=== PATIENT | male | born 1995 | race Caucasian/White ===

== ENCOUNTER 2016-11-24 17:23 | Emergency (ER) | payer BC ==
[~2016-11-24] VITALS: Ht 175.3 cm; Wt 67.8 kg
[2016-11-24 17:31] VITALS: TEMP 36.7; Ht 175.3 cm; Wt 67.8 kg
[2016-11-24] MEDS ORDERED: IBUPROFEN 600 MG TAB PO STA (17:56)
[2016-11-24] MEDS ORDERED: HYDROCODONE/ACETAMOPHEN 5/325MG TAB PO STA (17:56)
--- NOTE | 2016-11-24 17:58 | EMERGENCY ROOM VISIT NOTE ---
History Report prepared by Jono: Cisco Taylor Under the Supervision of: Dr. Peter Lundberg M.D. First contact with patient: 17:47 Chief Complaint: TESTICULAR PAIN Stated Complaint: TESTICULAR AND BACK PAIN Nursing Triage Summary: PT C/O RIGHT TESTICULAR AND BILATERAL LOWER BACK PAIN 4/10 X3 DAYS. DENIES ANY PENILE DISCHARGE. DENIES ANY INJURY PRIOR TO PAIN STARTING. PT WAS SEEN AT URGENT CARE, GAVE URINE SAMPLE AND WAS TOLD THERE WAS BLOOD IN URINE BUT UNABLE TO DETERMINE CAUSE, SENT HERE FOR FURTHER EVAL. History of Present Illness The patient is a 20 year old male who presents to the Emergency Room with complaints of intermittent right testicular pain that started 3 days ago. The patient associates the testicular pain with lower back pain on both sides. He says he went to [facility] earlier today and gave a urine sample. The patient notes that it was found that he had a bit of blood in his urine but it was not visible. He was then sent here. The patient denies any nausea, abdominal pain, or penile discharge. He has no major medical history. The patient has not had any sexual contact lately. Source of History: patient Onset: 3 days ago Position: other (right testicle - pain) Timing: intermittent Associated Symptoms: + back pain (lower), + urinary symptoms (bit of blood in urine - not visible), No abdominal pain, No nausea Note: Associated symptoms: Denies penile discharge. Review of Systems See HPI for pertinent positives & negatives. A total of 10 systems reviewed and were otherwise negative. Past Medical & Surgical Medical Problems: (1) ADHD (attention deficit hyperactivity disorder), combined type (2) No pertinent past medical history (3) Substance use disorder Surgical Problems: (1) No pertinent past surgical history Family History No pertinent family history Social History Smoking Status: Current Every Day Smoker Alcohol Use: none Drug Use: none Marital Status: single Occupation Status: student Current/Historical Medications Scheduled Amphetamine-Dextroamphetamine 20MG (Adderall 20MG), 20 MG PO BID Doxycycline Monohydrate (Monodox), 100 MG PO BID Scheduled PRN Hydrocodone/Acetaminophen 5MG/325MG (Bracey 5MG/325MG), 2 TABLETS PO Q6 PRN for Pain Allergies Uncoded Allergies: UNKNOWN SLEEPING MED (Allergy, Unknown, UNKNOWN, 11/24/16) Physical Exam Vital Signs Date Time Temp Pulse Resp B/P Pulse Ox O2 Delivery O2 Flow Rate FiO2 11/24/16 19:30 76 16 119/82 98 11/24/16 17:31 36.7 102 18 126/74 96 Room Air Physical Exam GENERAL: Patient is a healthy-appearing well-nourished HEAD: Normocephalic atraumatic EYES: Ocular movements intact pupils equal and react to light OROPHARYNX mucous membranes are moist no exudates present no erythema or edema present NECK: Supple no nuchal rigidity CHEST: Good equal expansion LUNGS: Clear and equal to auscultation CARDIAC: Normal S1 and S2 ABDOMEN: Soft nontender no guarding BACK: No CVA tenderness EXTREMITIES: No pain upon palpation normal muscle strength in all groups no clubbing cyanosis or edema : Normal cremasteric reflex. No discharge, no testicular tenderness. NEURO: Patient is following commands is answering questions appropriately. Alert and oriented x3 Cranial Nerves 2-12 grossly intact Medical Decision & Procedures ER Provider Diagnostic Interpretation: US results as stated below per my review and radiologist interpretation: TESTICULAR ULTRASOUND HISTORY: Right-sided testicular pain. COMPARISON: None. FINDINGS: Right testis: 2.9 x 4.3 x 2.2 cm. There are no intratesticular masses. Normal color flow. No hydrocele. The epididymis is unremarkable. Left testis: 3.0 x 4.6 x 2.1 cm. There are no intratesticular masses. Normal color flow. No hydrocele. The epididymis is unremarkable. IMPRESSION: Normal testicular ultrasound. Electronically signed by: Tim Amaya M.D. 11/24/2016 6:54 PM Dictated Date/Time: 11/24/2016 6:53 PM RENAL ULTRASOUND HISTORY: Right-sided back pain/flank pain. COMPARISON: None. FINDINGS: Right kidney: 11 cm. No hydronephrosis. Normal corticomedullary differentiation and cortical thickness. There is a 7 mm cyst within the lower pole. Left kidney: 10.6 cm. No hydronephrosis. Normal corticomedullary differentiation and cortical thickness. Bladder: No bladder wall thickening. The bilateral ureteral jets were identified. IMPRESSION: 1. A 7 mm cyst within the lower pole of the right kidney. 2. Otherwise, normal renal ultrasound. Electronically signed by: Tim Amaya M.D. 11/24/2016 6:53 PM Dictated Date/Time: 11/24/2016 6:52 PM Laboratory Results Test 1/27/17 18:05 Urine Color YELLOW Urine Appearance CLEAR (CLEAR) Urine pH 6.5 (4.5-7.5) Urine Specific [place] 1.000 (1.000-1.030) Urine Protein NEG (NEG) Urine Glucose (UA) NEG (NEG) Urine Ketones NEG (NEG) Urine Occult Blood NEG (NEG) Urine Nitrite NEG (NEG) Urine Bilirubin NEG (NEG) Urine Urobilinogen NEG (NEG) Urine Leukocyte Esterase NEG (NEG) Labs reviewed by ED physician. Medications Administered Medications (Trade) Dose Ordered Sig/Mercedes Route Start Time Stop Time Status Last Admin Dose Admin Acetaminophen/ Hydrocodone Bitart (Bracey 5/325 Tab) 2 tab NOW STAT PO 11/24/16 17:56 11/24/16 17:57 DC 11/24/16 18:11 2 TAB Azithromycin (Zithromax Tab) 1,000 mg NOW STAT PO 11/24/16 19:08 11/24/16 19:10 DC 11/24/16 19:27 1,000 MG Doxycycline Hyclate (Vibramycin Cap) 100 mg NOW STAT PO 11/24/16 19:08 11/24/16 19:10 DC 11/24/16 19:27 100 MG Acetaminophen/ Hydrocodone Bitart (Bracey 5/325mg Home Pack) 1 homepack UD ONCE PO 11/24/16 19:15 11/24/16 19:16 DC 11/24/16 19:28 1 HOMEPACK ED Course 1748: Past medical records reviewed. The patient was evaluated in room C12A. A complete history and physical examination was performed. 1756: Ordered Bracey 5/325 Tab 2 tab PO, Motrin Tab 600 mg PO. 1907: Ordered Vibramycin Cap 100 mg PO, Zithromax Tab 1000 mg PO, Rocephin IM 250 mg. 1904: I reevaluated the patient and he is resting comfortably. The patient verbally expressed understanding and agreement of the treatment plan. The patient will be discharged. 1914: Ordered Bracey 5/325 mg Home Pack 1 homepack PO. Medical Decision This is a 20-year-old male who presents emergency department complaining of right testicular pain as well as left-sided back pain. Serial abdominal examinations were performed on the patient in the emergency department and at no time did the patient exhibit abdominal tenderness or surgical abdomen. Based on the patient's history as well as his findings he was sent for an ultrasound of the testicles to ensure that this was not a torsion. The patient had been sent in by medics breast to express concerns over possible blood in the urine. There is no evidence of blood in the urine here in the emergency department. Based on this finding however the patient was also sent for renal ultrasound. The ultrasound of both the renals as well as the bladder and the testicles are normal. At this point I offered to do a CAT scan for the patient however using shared medical decision making we will I believe this to be low yield and the patient will defer to be seeing urology. I did recommended tight fitting brace recommended antibiotics encases as infection. For this reason the patient was given Rocephin azithromycin and started on doxycycline. He will follow up with urology. Impression Primary Impression: Testicular pain, right Scribe Attestation The scribe's documentation has been prepared under my direction and personally reviewed by me in its entirety. I confirm that the note above accurately reflects all work, treatment, procedures, and medical decision making performed by me. Departure Information Dispostion Home / Self-Care Prescriptions Hydrocodone/Acetaminophen 5MG/325MG (Bracey 5MG/325MG) Tab 2 TABLETS PO Q6 Y for Pain, #14 TAB Prov: Peter Lundberg MD 11/24/16 Doxycycline Monohydrate (Monodox) 100 Mg Cap 100 MG PO BID for 10 Days, #20 CAP Prov: Peter Lundberg MD 11/24/16 Referrals No Doctor, Assigned (PCP) Raffaele Dolan M.D. Forms HOME CARE DOCUMENTATION FORM, IMPORTANT VISIT INFORMATION, WORK / SCHOOL INSTRUCTIONS Patient Instructions ED Testicular Pain [facility], [facility] Additional Instructions Follow up with DR Dolan's office for continued pain Wear tight fitting briefs You received narcotic or benzodiazepene medication while in the emergency room today. Do not drive, operate heavy machinery, or drink alcohol under the influence of this medication. Take 600 mg Ibuprofen every 6 hours Take Bracey for breakthrough pain Culture results are usually available in approx 48 hours You have been examined and treated today on an emergency basis only. This is not a substitute for, or an effort to provide, complete comprehensive medical care. It is impossible to recognize and treat all injuries or illnesses in a single emergency department visit. It is therefore important that you follow up closely with [facility]. Call as soon as possible for an appointment. Thank you for your time and consideration. I look forward to speaking with you again soon. Please don't hesitate to call us if you have any questions.
[2016-11-24] MEDS ORDERED: AMPH20TA2 PO (18:23)
[2016-11-24 18:38] LABS: URINE APPEARANCE CLEAR (CLEAR); URINE BILIRUBIN NEG (NEG); URINE COLOR YELLOW; URINE NITRITE NEG (NEG); URINE PH 6.5 (4.5-7.5); UROBILINOGEN NEG (NEG); ZZUR CULT IF INDIC CLEAN CATCH NO
[2016-11-24 18:41] LABS: MANUAL MICROSCOPIC REQUIRED? NO; REVIEW REQ? NO
--- NOTE | 2016-11-24 18:55 | DIAGNOSTIC IMAGING REPORT ---
RENAL ULTRASOUND HISTORY: Right-sided back pain/flank pain. COMPARISON: None. FINDINGS: Right kidney: 11 cm. No hydronephrosis. Normal corticomedullary differentiation and cortical thickness. There is a 7 mm cyst within the lower pole. Left kidney: 10.6 cm. No hydronephrosis. Normal corticomedullary differentiation and cortical thickness. Bladder: No bladder wall thickening. The bilateral ureteral jets were identified. IMPRESSION: 1. A 7 mm cyst within the lower pole of the right kidney. 2. Otherwise, normal renal ultrasound. Electronically signed by: Tim Amaya M.D. 11/24/2016 6:53 PM Dictated Date/Time: 11/24/2016 6:52 PM
--- NOTE | 2016-11-24 18:55 | DIAGNOSTIC IMAGING REPORT ---
TESTICULAR ULTRASOUND HISTORY: Right-sided testicular pain. COMPARISON: None. FINDINGS: Right testis: 2.9 x 4.3 x 2.2 cm. There are no intratesticular masses. Normal color flow. No hydrocele. The epididymis is unremarkable. Left testis: 3.0 x 4.6 x 2.1 cm. There are no intratesticular masses. Normal color flow. No hydrocele. The epididymis is unremarkable. IMPRESSION: Normal testicular ultrasound. Electronically signed by: Tim Amaya M.D. 11/24/2016 6:54 PM Dictated Date/Time: 11/24/2016 6:53 PM
[2016-11-24] MEDS ORDERED: DOXYCYCLINE HYCLATE 100 MG CAP PO STA (19:08)
[2016-11-24] MEDS ORDERED: AZITHROMYCIN 250 MG TAB PO STA (19:08)
[2016-11-24] MEDS ORDERED: CEFTRIAXONE SOD 350MG/ML 1 GM VIAL IM STA (19:08)
[2016-11-24] MEDS ORDERED: HYDR-5688 PO (19:11)
[2016-11-24] MEDS ORDERED: DOXY100C76 PO (19:11)
[2016-11-24] MEDS ORDERED: NORCO 5/325MG HOME PACK PO ONE (19:15)
[2016-11-24 19:30] VITALS: BP 119/82; PULSE 76; O2SAT 98
== END 2016-11-24 19:37 | disposition home or self-care (01) ==
LOC: C.EDB 17:24 → C.EDC 19:37
DX: N50.811 Right testicular pain (principal); F90.2 Attention-deficit hyperactivity disorder, combined type